=== PATIENT | male | born 1965 | race Hispanic/Latino ===

== ENCOUNTER → 2019-05-23 07:40 | Outpatient (CLI) | payer OTHER, SELFPAY ==
--- NOTE | 2019-05-23 | DI.MRI.S_ITS ---
PROCEDURE: MR FOOT LT WO/W CON INDICATIONS: PRIMARY OSTEOARTHRITIS BILATERAL FEET TECHNIQUE: Noncontrast sagittal T1 spin echo and T2 fast spin echo with fat saturation, long-axis T1 spin echo and T2 fast spin echo with fat saturation; short-axis T1 spin echo, proton density fast spin echo, and T2 fast spin echo with fat saturation through the forefoot. Post-contrast short axis, long axis, and sagittal T1 spin echo with fat saturation through the forefoot. COMPARISON: [facility], CR, XR FOOT 3+ VIEWS BILATERAL, 04/04/2019, 16:52. FINDINGS: Image quality: Diagnostic. Bones and joints: No acute fracture or dislocation is evident. No suspicious osseous lesions are identified. There are mild degenerative changes of the midfoot and forefoot joints which are more prominent involving the mid foot joints. No hallux valgus is evident. No definitive osseous erosions are appreciated. However, there is mild focal marrow edema with subtle enhancement involving the lateral margin of the head of the 5th metatarsal. 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 There is edema identified involving the navicular and the adjacent head of the talus with associated prominent degenerative changes of the talonavicular joint. There also is prominent marrow edema evident involving the calcaneus, which is not adequately characterized or evaluated on this study. Soft tissues: Mild soft tissue edema about the foot is more prominent overlying the region of the great toe. There is increased signal identified involving the intrinsic muscles of the medial forefoot, predominantly seen involving the flexor pollicis brevis muscle. There may be mild atrophy involving the flexor hallucis brevis muscle. There is a small fluid collection now demonstrates vague enhancement along the plantar surface of the distal margin of the 1st metatarsal, which measures approximately 1.1 x 0.7 cm and is noted to be located in very close proximity to the underlying flexor hallucis longus tendon. The exact origin of this structure is uncertain and could potentially represent a ganglion cyst from the flexor hallucis longus tendon sheath or synovial cyst from the 1st metatarsophalangeal joint. Mild associated enhancement is evident on the provided images. Otherwise, the remainder of the flexor and extensor tendons are unremarkable. No significant abnormal synovial enhancement of the tendon sheaths of the flexor or extensor tendons are appreciated. Incidental note is made of fluid between the 1st and 2nd metatarsal heads. IMPRESSION: 1. No definitive osseous erosions. 2. Vague edema and enhancement of the lateral margin of the 5th metatarsal head may be reactive from bone contusion. A sign of early inflammatory process involving the joint cannot be excluded and clinical correlation is recommended. 3. Small cystic structure along the plantar margin of the distal 1st metatarsal may represent a ganglion cyst arising from the flexor hallucis longus tendon sheath or synovial cyst arising from the 1st metatarsophalangeal joint. This could potentially be seen in the setting of an inflammatory process and clinical correlation is recommended. 4. Soft tissue edema of the forefoot is noted to involve the medial intrinsic muscles, best appreciated involving the flexor hallucis brevis muscle. This edema may be related to recent muscle strains or potentially a neurogenic process. 5. Prominent degenerative changes of the talonavicular joint are not adequately characterized. 6. Diffuse edema of the calcaneus is not adequately characterize and may represent bone contusion. Other processes are difficult to exclude. The need for dedicated CT or MR imaging of the hindfoot should be based on clinical grounds. 7. Probable bursitis between the 1st and 2nd metatarsal heads. Dictated by: Aman Vazquez M.D. on 05/23/2019 at 12:36 Approved by: Aman Vazquez M.D. on 05/23/2019 at 12:47
--- NOTE | 2019-05-23 | DI.MRI.S_ITS ---
PROCEDURE: MR FOOT RT WO/W CON INDICATIONS: PRIMARY OSTEOARTHRITIS BILATERAL FEET TECHNIQUE: Noncontrast sagittal T1 spin echo and T2 fast spin echo with fat saturation, long-axis T1 spin echo and T2 fast spin echo with fat saturation; short-axis T1 spin echo, proton density fast spin echo, and T2 fast spin echo with fat saturation through the forefoot. Post-contrast short axis, long axis, and sagittal T1 spin echo with fat saturation through the forefoot. COMPARISON: [facility], MR, MR FOOT LT WO/W CON, 05/23/2019, 7:50. FINDINGS: Image quality: Diagnostic. Bones and joints: No acute fracture, dislocation, or suspicious osseous lesion is identified involving the osseous structures of the midfoot or forefoot. No suspicious osseous enhancement is identified. Subcortical marrow edema involving the lateral 1st metatarsal head is identified without a definitive erosion appreciated. There is corresponding marrow edema. No erosive changes are appreciated involving the midfoot or forefoot structures. There is no suspicious enhancement. No hallux valgus is evident. The alignment of the Lisfranc joint is within normal limits. 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 Mild degenerative changes of the talonavicular joint are present. Soft tissues: No soft tissue masses or suspicious soft tissue enhancement is appreciated. No large ganglion cysts are identified. Mild there is a soft tissue edema about the midfoot and forefoot is evident. There is a moderate amount of fluid contained within the extensor digitorum tendon sheaths along the midfoot region. Mild edema of the intrinsic muscles of the foot is more prominent involving the medial intrinsic muscles, best appreciated involving being flexor hallucis brevis muscle. No significant muscle atrophy is appreciated. The flexor and extensor tendons of the midfoot and forefoot are intact. There is no definite synovial enhancement involving these tendons. No significant fluid is contained within the intermetatarsal bursa at the forefoot. IMPRESSION: 1. No osseous erosions or convincing findings of an inflammatory arthropathy. 2. Mild degenerative changes of the 1st metatarsophalangeal joint is conventional osteoarthritis. 3. Fluid within the extensor digitorum tendon sheath most likely represents tenosynovitis. Please correlate clinically to exclude the possibility of a superimposed inflammatory synovitis. 4. Mild edema involving the intrinsic muscles of the foot may be related to muscle strains or contusion. A neurogenic process is difficult to exclude. 5. Degenerative changes of the talonavicular joint are not well characterized. Dictated by: Aman Vazquez M.D. on 05/23/2019 at 12:47 Approved by: Aman Vazquez M.D. on 05/23/2019 at 12:53
== END ==
PROVIDERS: PCP Nurse Practitioner Family; Referring Provider Internal Medicine Rheumatology; Visit Provider Internal Medicine Rheumatology
DX: M19.071 Primary osteoarthritis, right ankle and foot (principal); M19.072 Primary osteoarthritis, left ankle and foot
CPT/HCPCS: 73720; A9579

== ENCOUNTER → 2021-09-26 12:45 | Outpatient (CLI) | payer OTHER, SELFPAY | PROVIDERS: PCP Nurse Practitioner Family; Visit Provider Nurse Practitioner Family | DX: J02.9 Acute pharyngitis, unspecified (principal) | CPT/HCPCS: 87070 ==